=== PATIENT | female | born 1980 | race Caucasian/White ===

== ENCOUNTER 2018-06-18 13:38 | Observation (INO) ==
[2018-06-18 15:31] LABS: BASOPHILS # (AUTO) 0.1 X10^3/uL (0.0-0.1); EOSINOPHILS % (AUTO) 0.7 % (0.9-2.9); HEMATOCRIT 30.1 % (36.0-47.0); HEMOGLOBIN 9.5 g/dL (12.0-16.0); LYMPHOCYTES # (AUTO) 1.5 X10^3/uL (1.3-2.9); LYMPHOCYTES % (AUTO) 21.6 % (21.0-51.0); MEAN CORPUSCULAR HGB CONC 31.5 g/dL (33.0-35.0); MEAN CORPUSCULAR VOLUME 69.8 fL (80.0-100.0); MONOCYTES # (AUTO) 0.4 x10^3/uL (0.3-0.8); MONOCYTES % (AUTO) 6.2 % (0.0-13.0); NEUTROPHILS # (AUTO) 4.8 x10^3/uL (2.2-4.8); NEUTROPHILS % (AUTO) 70.5 % (42.0-75.0); PLATELET COUNT 443 X10^3/uL (150.0-450.0); RED BLOOD COUNT 4.31 X10^6/uL (3.5-5.4); RED CELL DISTRIBUTION WIDTH 21.6 % (11.6-16.5); WHITE BLOOD COUNT 6.8 X10^3/uL (3.6-10.0)
[2018-06-18 15:38] LABS: ANISOCYTOSIS 1+; HYPOCHROMASIA 1+; MICROCYTOSIS 1+; PLATELET MORPHOLOGY COMMENT NORMAL (NORMAL)
--- NOTE | 2018-06-18 15:39 | RAD ---
Indication: Shortness of breath Exam: PA and lateral Comparison: None. Findings: The heart is mildly enlarged. The pulmonary vessels are slightly ill-defined centrally . Th ere are hazy bibasilar interstitial opacities . There are tiny pleural effusions posteriorly. The bon es are intact. Impression: Mild cardiomegaly and probable mild pulmonary interstitial edema. Tiny pleural effusions posteriorly. Reported By:
[2018-06-18 15:41] LABS: ALANINE AMINOTRANSFERASE 41 Units/L (12-78); ALKALINE PHOSPHATASE 60 Units/L (46-116); ASPARTATE AMINO TRANSFERASE 34 Units/L (15-37); BLOOD UREA NITROGEN 8 mg/dL (7-18); CALCIUM 8.8 mg/dL (8.5-10.1); CARBON DIOXIDE 24.8 mmol/L (21-32); CHLORIDE 106 mmol/L (98-107); CREATININE 0.77 mg/dL (0.55-1.02); SODIUM 140 mmol/L (136-145); TOTAL PROTEIN 7.6 g/dL (6.4-8.2); eGFR NON BLACK RACES > 60 (>60)
[2018-06-18 16:14] LABS: B-TYPE NATRIURETIC PEPTIDE 680 pg/mL (0-79)
[2018-06-18] MEDS ORDERED: NS 100 ML IV 100 ML IV ONE (16:23)
--- NOTE | 2018-06-18 16:33 | DR.SOBA ---
HPI Time Seen Time Seen by Provider: 06/18/18 15:03 Primary Care Physician Primary Care Physician: SABINO Complaints Chief Complaint Doctors Comments: Patient presents with complaint of SOB when laying down for the past week. She denies cigarette use or alcohol Chief Complaint:: PT C/O SOB AND CHEST PRESSURE WHEN LAYING DOWN AND BENDING OVER. PT STATES SHE HAS BEEN HAVING THESE SYMPTOMS SINCE FRIDAY. She denies cigarette or alcohol use. She denies a history of cardiopulmonary disease. She admits to not being able to walk across room without giving out of breath. Source History Provided: Patient Mode of Arrival Mode of Arrival: Ambulatory Timing Onset of Chief Complaint: 06/15/18 PMH PMH Past Medical History: Yes Past Medical History: Anxiety Past Medical History Comment: TACHYCARDIA Past Surgical History: Yes Surgical History: Family History History of Family Medical Conditions: Yes Family Medical History: Diabetes Mellitus, [place], Coronary Artery Disease and Hypertension Social History Does patient currently use any type of tobacco product: No Have you used tobacco products in the last 12 months: No Type of Tobacco Use: None Does any household member use tobacco: No Alcohol Use: None Do you use any recreational Drugs:: No Lives With: Spouse Lives Where: Home infectious screening In the last 2 months have you had wt loss of >10#?: NO Have you had fever, night sweats or hemotysis?: No Have you traveled outside the country in the last 6 months?: No Isolation: Standard PE Vital Signs Vitals: Temperature 98.8 F Pulse Rate [Left] 96 Pulse Rate 95 Respiratory Rate 15 Blood Pressure [Left Arm] 85/53 Blood Pressure [Right Arm] 105/72 Blood Pressure 105/72 O2 Sat by Pulse Oximetry 96 General Limitations: No Limitations, Language Barrier and Physical Limitation (can only walk short distances before getting short of breath); negative Altered Mental Status General Appearance: Alert and In No Apparent Distress; negative In Distress Head Head Exam: Normal Inspection, Atraumatic and Normocephalic ENT ENT Exam: Normal Exam, Normal Oropharynx, Normal External Ear Exam, Mucous Membranes Moist and TM's Normal Bilaterally Neck Neck Exam: Normal Inspection and Full ROM; negative Tenderness and Lymphadenopathy Chest Chest Inspection: Normal Inspection and Symmetric Chest Wall Rise Respiratory Respiratory Exam: Normal Lung Sounds Bilat; negative Chest Wall Tenderness Respiratory Exam: Bilateral: Clear to Auscultation Cardiovascular Cardiovascular Exam: Regular Rate, Normal Rhythm and Normal Heart Sounds; negative Tachycardia, Irregular Rhythm, Gallop, Clicks and JVD Abdominal Exam Abdominal Exam: Normal Inspection, Normal Bowel Sounds and Soft; negative Distention, Tenderness and Hyperactive Bowel Sounds Abdominal Tenderness: negative RUQ, RLQ, LUQ, LLQ and Epigastrium Extremities Extremities Exam: Normal Inspection and Full ROM Back Back Exam: Normal Inspection and Full ROM; negative (R) CVA Tenderness and (L) CVA Tenderness Neurologic Neurological Exam: Alert, CN II-XII Intact, Normal Gait and Reflexes Normal Psychiatric Psychiatric Exam: Normal Affect and Normal Mood Skin Skin Exam: Warm, Dry, Intact and Normal Color; negative Diaphoresis COURSE Treatment Treatment: Lasix Consultation Called: 18:30 Consultation Comments: Dr. Sampson agreed to admit for further evaluation and treatment ROR Labs Reviewed Laboratory Results Reviewed?: Yes Result Diagrams: 06/19/18 05:35 06/19/18 05:35 Laboratory: WBC 6.6 X10^3/uL (3.6-10.0) 06/19/18 05:35 RBC 4.09 X10^6/uL (3.5-5.4) 06/19/18 05:35 Hgb 9.0 g/dL (12.0-16.0) L 06/19/18 05:35 Hct 28.4 % (36.0-47.0) L 06/19/18 05:35 MCV 69.4 fL (80.0-100.0) L 06/19/18 05:35 MCH 21.9 pg (27.0-34.0) L 06/19/18 05:35 MCHC 31.6 g/dL (33.0-35.0) L 06/19/18 05:35 RDW 21.1 % (11.6-16.5) H 06/19/18 05:35 Plt Count 420 X10^3/uL (150.0-450.0) 06/19/18 05:35 Plt Count Comment Adequate (ADEQUATE) 06/19/18 05:35 MPV 8.2 fL (7.4-11.0) 06/19/18 05:35 Neut % (Auto) 75.3 % (42.0-75.0) H 06/19/18 05:35 Lymph % (Auto) 16.6 % (21.0-51.0) L 06/19/18 05:35 [place] % (Auto) 5.8 % (0.0-13.0) 06/19/18 05:35 Eos % (Auto) 1.2 % (0.9-2.9) 06/19/18 05:35 Baso % (Auto) 1.1 % (0.2-1.0) H 06/19/18 05:35 Neut # (Auto) 5.0 x10^3/uL (2.2-4.8) H 06/19/18 05:35 Lymph # (Auto) 1.1 X10^3/uL (1.3-2.9) L 06/19/18 05:35 [place] # (Auto) 0.4 x10^3/uL (0.3-0.8) 06/19/18 05:35 Eos # (Auto) 0.1 x10^3/uL (0.0-0.2) 06/19/18 05:35 Baso # (Auto) 0.1 X10^3/uL (0.0-0.1) 06/19/18 05:35 Absolute Nucleated RBC 0.1 /100WBC 06/19/18 05:35 Plt Morphology Comment Normal (NORMAL) 06/19/18 05:35 RBC Morphology Abnormal (NORMAL) A 06/19/18 05:35 Hypochromasia 1+ A 06/19/18 05:35 Anisocytosis 1+ A 06/19/18 05:35 Microcytosis 1+ A 06/19/18 05:35 D-Dimer 615 ng/mL (0-400) H* 06/18/18 15:20 Sodium 140 mmol/L (136-145) 06/19/18 05:35 Corrected Sodium TNP 06/19/18 05:35 Potassium 3.5 mmol/L (3.5-5.1) 06/19/18 05:35 Chloride 105 mmol/L (98-107) 06/19/18 05:35 Carbon Dioxide 26.3 mmol/L (21-32) 06/19/18 05:35 BUN 5 mg/dL (7-18) L 06/19/18 05:35 Creatinine 0.76 mg/dL (0.55-1.02) 06/19/18 05:35 Est GFR (MDRD) Af Amer > 60 (>60) 06/19/18 05:35 Est GFR (MDRD) Non-Af > 60 (>60) 06/19/18 05:35 Glucose 91 mg/dL (65-99) 06/19/18 05:35 Calcium 8.3 mg/dL (8.5-10.1) L 06/19/18 05:35 Corrected Calcium TNP 06/19/18 05:35 Total Bilirubin 1.20 mg/dL (0.2-1.0) H 06/19/18 05:35 AST 27 Units/L (15-37) 06/19/18 05:35 ALT 34 Units/L (12-78) 06/19/18 05:35 Alkaline Phosphatase 54 Units/L (46-116) 06/19/18 05:35 Creatine Kinase 70 Units/L (26-192) 06/18/18 15:20 CK-MB (CK-2) < 1.0 ng/mL (0-4.0) 06/18/18 15:20 CK/CKMB % Calc 1.4 % (<4) 06/18/18 15:20 Troponin I < 0.02 ng/mL (0-1.5) 06/18/18 15:20 B-Natriuretic Peptide 680 pg/mL (0-79) H* 06/18/18 15:20 Total Protein 7.0 g/dL (6.4-8.2) 06/19/18 05:35 Albumin 3.5 g/dL (3.4-5.0) 06/19/18 05:35 Globulin 3.5 g/dL (2.5-4.5) 06/19/18 05:35 Albumin/Globulin Ratio 1.0 Ratio (1.1-2.1) L 06/19/18 05:35 Other Results Comments: CTA: negative PE XRAY XRAY Findings: Mild cardiomegaly and probable mild pulmonary edema;tiny Pleural effusion Diagnosis Discharge Problem: Pulmonary edema Instructions Instructions: Heart Failure, [id number] Echocardiogram Living With Heart Failure Forms: Patient Portal
[2018-06-18 16:56] LABS: CKMB % 1.4 % (<4); CREATINE KINASE 70 Units/L (26-192); CREATINE KINASE MB < 1.0 ng/mL (0-4.0); TROPONIN I < 0.02 ng/mL (0-1.5)
--- NOTE | 2018-06-18 16:57 | CT ---
CTA chest Indication: Shortness of breath Technique: Helical CT images of the chest were obtained with IV contrast. Reformatted images in the c oronal and sagittal planes and 3D MIP images were also generated for review. Comparison: None Findings: Contrast bolus timing is adequate for detection of PTE. No pulmonary thromboembolus is iden tified. There is no pulmonary arterial dilatation or evidence of right heart strain. The heart is mil dly enlarged without significant pericardial effusion. The thoracic aorta and proximal great vessels are grossly normal in contour caliber. The central airways are patent. There is no mediastinal or bul ky hilar lymphadenopathy. There are small bilateral pleural effusions, greater on the right with minimal atelectasis of the jaja ateral lower lobes. There is also patchy ground-glass mosaic attenuation of the lower lobes with asso ciated interlobular septal thickening, compatible with mild edema. The remainder of the lungs are tor ar without dense focal consolidation. No pneumothorax is identified. Limited arterial phase images of the upper abdomen demonstrate passive contrast reflux into the hepat ic veins and IVC, compatible with right-sided heart dysfunction. No aggressive osseous lesions are id entified. Impression: No PTE identified. Cardiomegaly, small right greater than left pleural effusion and mild interstitial edema, collectivel y suggestive for CHF. Reported By:
[2018-06-18] MEDS ORDERED: TORADOL 60 MG VIAL IM ONE (17:55)
[2018-06-18] MEDS ORDERED: LASIX ONE (17:57)
[2018-06-18] MEDS ORDERED: AMBIEN PO PRN (23:53)
[2018-06-19 06:38] LABS: BASOPHILS # (AUTO) 0.1 X10^3/uL (0.0-0.1); BASOPHILS % (AUTO) 1.1 % (0.2-1.0); EOSINOPHILS # (AUTO) 0.1 x10^3/uL (0.0-0.2); EOSINOPHILS % (AUTO) 1.2 % (0.9-2.9); HEMATOCRIT 28.4 % (36.0-47.0); LYMPHOCYTES # (AUTO) 1.1 X10^3/uL (1.3-2.9); LYMPHOCYTES % (AUTO) 16.6 % (21.0-51.0); MEAN CORPUSCULAR HEMOGLOBIN 21.9 pg (27.0-34.0); MEAN CORPUSCULAR HGB CONC 31.6 g/dL (33.0-35.0); MEAN CORPUSCULAR VOLUME 69.4 fL (80.0-100.0); MEAN PLATELET VOLUME 8.2 fL (7.4-11.0); MONOCYTES # (AUTO) 0.4 x10^3/uL (0.3-0.8); MONOCYTES % (AUTO) 5.8 % (0.0-13.0); NEUTROPHILS % (AUTO) 75.3 % (42.0-75.0); PLATELET COUNT 420 X10^3/uL (150.0-450.0); RED BLOOD COUNT 4.09 X10^6/uL (3.5-5.4); RED CELL DISTRIBUTION WIDTH 21.1 % (11.6-16.5); WHITE BLOOD COUNT 6.6 X10^3/uL (3.6-10.0)
[2018-06-19 06:41] LABS: ALANINE AMINOTRANSFERASE 34 Units/L (12-78); ALBUMIN 3.5 g/dL (3.4-5.0); ALKALINE PHOSPHATASE 54 Units/L (46-116); ASPARTATE AMINO TRANSFERASE 27 Units/L (15-37); BLOOD UREA NITROGEN 5 mg/dL (7-18); CALCIUM 8.3 mg/dL (8.5-10.1); CARBON DIOXIDE 26.3 mmol/L (21-32); CHLORIDE 105 mmol/L (98-107); CREATININE 0.76 mg/dL (0.55-1.02); SODIUM 140 mmol/L (136-145); eGFR NON BLACK RACES > 60 (>60)
[2018-06-19 06:54] LABS: ANISOCYTOSIS 1+; HYPOCHROMASIA 1+; MICROCYTOSIS 1+; PLATELET MORPHOLOGY COMMENT NORMAL (NORMAL)
[2018-06-19] MEDS ORDERED: LASIX IVP SCH (09:00)
[2018-06-19] MEDS ORDERED: COREG TAB 3.125 MG PO SCH (09:00)
[2018-06-19 17:47] VITALS: BP 85/53
[2018-06-19] MEDS ORDERED: LASIX IVP ONE (17:59)
[2018-06-19] MEDS ORDERED: AMBIEN PO SCH (21:00)
[2018-06-19] MEDS ORDERED: CELEXA PO SCH ×2 (21:00)
== END 2018-06-19 18:26 | disposition home or self-care (01) ==
LOC: ICU 13:38 → ER 13:38 → ICU 19:25
PROVIDERS: ADMIT Obstetrics & Gynecology Obstetrics; ATTEND Obstetrics & Gynecology Obstetrics
DX: J81.1 Chronic pulmonary edema; J90 Pleural effusion, not elsewhere classified; I51.7 Cardiomegaly; R94.31 Abnormal electrocardiogram [ECG] [EKG]; R06.02 Shortness of breath; R07.89 Other chest pain; I50.9 Heart failure, unspecified
CPT/HCPCS: 36415; 71020; 71046; 71275; 80053; 82550; 82553; 83880; 84484; 85025; 85378; 93005; 93010; 93306; 96365; 96374; 99284; A4216; A4222; G0378; J1940; J7050